=== PATIENT | female | born 1955 | race Caucasian/White ===

== ENCOUNTER → 2019-01-11 | Day surgery (SDC) | payer OTHER ==
--- NOTE | 2019-01-12 17:01 | PATH ---
Cytology Non-Gynecological Report Patient Name: MAE HARLEY [facility]. Rec. #: [id number] /Age/Gender: 1955 (Age: 63) / F Account: [id number] Location: RADIOLOGY INTER Taken: 01/11/2019 Received: 01/11/2019 Reported: 01/12/2019 Physicians: Hannah De Souza M.D. Specimen(s) Received RIGHT THYROID FNA Clinical History Right, 1.56 x 0.86 x 1.07 cm Final Diagnosis SATISFACTORY FOR EVALUATION. 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 Suggest clinical/radiologic correlation and repeat sampling after an appropriate interval (3-6 months) with material for molecular studies (Thyroseq), as clinically warranted. Electronically Signed Charisse Cazares M.D. Gross Description Received are eight direct smears, four of which are air-dried and Diff-Quik stained, and four of which are alcohol fixed and Pap stained. Also received is 20 ml of bloody formalin from which one cellblock is prepared.
== END | disposition home or self-care (01) ==
LOC: JRADIR 09:30
PROVIDERS: ATTEND Internal Medicine Endocrinology, Diabetes & Metabolism
PROC: 0G9K3ZX Drainage of Thyroid Gland, Percutaneous Approach, Diagnostic (ICD-10-PCS; principal; 2019-01-11)
DX: D34 Benign neoplasm of thyroid gland (principal)
CPT/HCPCS: 76942; 88173; 88305-TC

== ENCOUNTER 2022-01-07 04:16 | Day surgery (SDC) | payer OTHER, MEDICARE ==
[2022-01-03 14:12] VITALS: BMI 28.0
[2022-01-07] MEDS ORDERED: BUPIVACAINE HCL/PF 0.5% (5MG/ML) 10 ML VIAL ONE (07:20)
[2022-01-07] MEDS ORDERED: BUPIVACAINE HCL/PF 0.25% (2.5MG/ML) 10 ML VIAL ONE (07:20)
[2022-01-07] MEDS ORDERED: LIDOCAINE HCL/PF 1% SDV 5ML VIAL ONE (07:21)
[2022-01-07] MEDS ORDERED: BUPIVACAINE HCL/PF 0.75% 10 ML VIAL ONE (07:21)
[2022-01-07] MEDS ORDERED: DEXAMETHASONE SOD PHOSPHATE 10 MG/1 ML VIAL ONE (07:22)
[2022-01-07] MEDS ORDERED: LIDOCAINE HCL 1% PRESERVATIVE FREE - 30ML VIAL IJ ONE (08:35)
[2022-01-07] MEDS ORDERED: BUPIVACAINE HCL/PF 0.75% 10 ML VIAL PNB ONE (08:35)
[2022-01-07 09:38] VITALS: TEMP 98.8
[2022-01-07 10:19] VITALS: BP 168/89; PULSE 64
== END 2022-01-07 09:25 | disposition home or self-care (01) ==
LOC: JASU-SURG 04:16
PROVIDERS: ATTEND Pain Medicine Pain Medicine
PROC: BR16YZZ Fluoroscopy of Lumbar Facet Joint(s) using Other Contrast (ICD-10-PCS; 2022-01-07)
PROC: 3E0T3BZ Introduction of Anesthetic Agent into Peripheral Nerves and Plexi, Percutaneous Approach (ICD-10-PCS; principal; 2022-01-07 08:00)
DX: M47.816 Spondylosis without myelopathy or radiculopathy, lumbar region (principal)
CPT/HCPCS: 76000-TC-FY; J1100

== ENCOUNTER 2023-12-08 13:33 | Emergency (ER) | payer OTHER, MEDICARE ==
[2023-12-08] MEDS ORDERED: IBUPROFEN 400 MG TABLET (FP) PO ONE (13:58)
[2023-12-08] MEDS ORDERED: ACETAMINOPHEN 325 MG TABLET (FP) ONE (13:58)
[2023-12-08] MEDS: ACETAMINOPHEN 325 MG TABLET (FP) PO ONE (14:00)
[2023-12-08] MEDS: IBUPROFEN 400 MG TABLET (FP) PO ONE (14:00)
[2023-12-08 14:04] VITALS: BP 169/63; PULSE 65; RESP 16; TEMP 98.8; BMI 25.8
== END 2023-12-08 15:23 | disposition home or self-care (01) ==
LOC: FER 13:33
DX: S69.92XA Unspecified injury of left wrist, hand and finger(s), initial encounter (principal); M79.89 Other specified soft tissue disorders; W01.0XXA Fall on same level from slipping, tripping and stumbling without subsequent striking against object, initial encounter
CPT/HCPCS: 73110-TC-LT-FY; 73130-TC-LT-FY; 99283-25

== ENCOUNTER 2024-01-27 21:18 | Emergency (ER) | payer OTHER, MEDICARE ==
[2024-01-27 21:27] VITALS: BP 161/72; PULSE 62; RESP 18; TEMP 98.3; BMI 25.8
[2024-01-27] MEDS ORDERED: ONDANSETRON 4 MG/2 ML VIAL ONE (21:42)
[2024-01-27] MEDS: SODIUM CHLORIDE 1,000 ML IV SCH (21:48)
[2024-01-27] MEDS: ONDANSETRON 4 MG/2 ML VIAL IVPB ONE (21:48)
[2024-01-27 21:58] LABS: HEMATOCRIT 36.4 % (32.4-45.2); HEMOGLOBIN 11.6 G/dL (10.7-15.3); MCH 28.6 pg (25.7-33.7); MEAN CELL VOLUME 89.5 fl (80-96); MEAN PLT VOLUME 8.6 fl (7.5-11.1); PLATELET COUNT 128.2 10^3/uL (134-434); RBC 4.07 10^6/uL (3.60-5.2); RDW 14.5 % (11.6-15.6); WHITE BLOOD COUNT 2.9 10^3/uL (4.0-10.8)
[2024-01-27 22:19] LABS: ALBUMIN 4.2 g/dl (3.4-5.0); BILIRUBIN,TOTAL 0.4 mg/dl (0.2-1); CALCIUM 8.5 mg/dl (8.5-10.1); CREATININE 0.9 mg/dl (0.6-1.3); MAGNESIUM 1.9 mg/dL (1.8-2.4); PHOSPHOROUS 2.8 (2.5-4.9); POTASSIUM 3.5 mmol/L (3.5-5.1); TOT PROT 6.9 g/dl (6.4-8.2)
== END 2024-01-27 22:40 | disposition home or self-care (01) ==
LOC: FER 21:18
PROC: 3E033GC Introduction of Other Therapeutic Substance into Peripheral Vein, Percutaneous Approach (ICD-10-PCS; principal; 2024-01-27)
DX: R11.2 Nausea with vomiting, unspecified (principal); R19.7 Diarrhea, unspecified; Z20.822 Contact with and (suspected) exposure to COVID-19
CPT/HCPCS: 36415; 80053; 83735; 84100; 85027; 87635; 99284-25